=== PATIENT | female | born 1990 | race Two or more races ===

== ENCOUNTER 2019-11-16 19:25 | Emergency (ER) | payer SELFPAY ==
[~2019-11-16] VITALS: Ht 170.2 cm; Wt 101.6 kg
[2019-11-16 21:39] VITALS: BP 129/90
== END 2019-11-17 01:39 | disposition left against medical advice (07) ==
LOC: ER 19:25
DX: S90.821A Blister (nonthermal), right foot, initial encounter (principal); S90.822A Blister (nonthermal), left foot, initial encounter; X58.XXXA Exposure to other specified factors, initial encounter; Y93.89 Activity, other specified; Y92.89 Other specified places as the place of occurrence of the external cause; Y99.8 Other external cause status